=== PATIENT | male | born 2000 | race Caucasian/White ===

== ENCOUNTER 2024-01-24 08:51 | Emergency (ER) | payer SELFPAY ==
[~2024-01-24] VITALS: Ht 162.6 cm; Wt 50.0 kg
[2024-01-24 08:53] VITALS: TEMP 98.4; O2SAT 100
[2024-01-24] MEDS: LORAZEPAM 1MG TABLET PO ONE (10:13)
[2024-01-24 10:14] VITALS: BP 118/88; PULSE 92; RESP 20; O2SAT 100
== END 2024-01-24 10:59 | disposition home or self-care (01) ==
LOC: ER 09:26
DX: R00.2 Palpitations (principal); F15.10 Other stimulant abuse, uncomplicated
CPT/HCPCS: 93005; 99283